=== PATIENT | female | born 1970 | race Caucasian/White ===

== ENCOUNTER 2016-09-01 09:33 | Emergency (ER) | payer SELFPAY ==
[~2016-09-01] VITALS: Ht 167.6 cm; Wt 54.5 kg
[~2016-09-01 09:33] MED LIST: AZIT500T4 PO; CITA40TA19; CMBV14.7IN INH; OXYC-109 PO; PRED20TA PO
[2016-09-01 10:14] LABS: BASOPHILS % (AUTO) 1 % (0-2); EOSINOPHILS # (AUTO) 0.2 10^3uL; EOSINOPHILS % (AUTO) 2 % (0-4); LYMPHOCYTES # (AUTO) 4.3 X10^3; MEAN CORPUSCULAR VOLUME 92 FL (80-100); MEAN PLATELET VOLUME 9.8 FL (6.0-9.5); MONOCYTES # (AUTO) 0.6 X10^3; MONOCYTES % (AUTO) 7 % (3-11); NEUTROPHILS # (AUTO) 4.4 X10^3; NEUTROPHILS % (AUTO) 46 % (51-67); PLATELET COUNT 314 10^3uL (150-450); WHITE BLOOD COUNT 9.52 10^3uL (4.0-11.0)
[2016-09-01 10:15] LABS: MEAN CORPUSCULAR HEMOGLOBIN 31.4 PG (26.0-34.0)
[2016-09-01 10:21] LABS: ALBUMIN 4.4 g/dL (3.4-5.0); ALKALINE PHOSPHATASE 86 U/L (38-126); ANION GAP 18.5 MEQ/L (3-15); BUN/CREATININE RATIO 14 (10-20); CALCULATED IONIZED CALCIUM 3.6 mg/dL (3.8-4.6); CREATINE KINASE 63 U/L (30-135); TOTAL PROTEIN 9.2 g/dL (6.4-8.5)
[2016-09-01 11:25] LABS: BILIRUBIN,URINE Negative (Negative); CLARITY,URINE Clear; COLOR,URINE Yellow; GLUCOSE, URINE (UA) Negative (Negative); LEUKOCYTE ESTERASE ,URINE Negative (Negative); UROBILINOGEN,URINE 0.2 mg/dL (0.2-1.0)
[2016-09-01 11:32] LABS: RBC,URINE 0-2 /HPF; URINE CENTRIFUGED VOLUME 12 mL
--- NOTE | 2016-09-01 11:33 | Diagnostic Imaging Report ---
EXAMINATION: PA and lateral chest are correlated with a CT study from May 26, 2012. INDICATION: Shortness of breath after sneezing. FINDINGS: The lungs demonstrate no focal pulmonary infiltrates or consolidation. There is no effusion. There is no evidence of pneumothorax. The lungs do appear to be hyperinflated evidenced by flattening of the diaphragms on the lateral view. Heart size and mediastinal contours are appropriate. No acute osseous abnormality demonstrated. IMPRESSION: 1. Pulmonary hyperinflation without evidence of focal infiltrate, effusion or pneumothorax. Dictated by: Dictated on workstation # [id number]
[2016-09-01 11:39] LABS: AMPHETAMINE SCREEN, URINE Negative (Negative); CANNABINOID SCREEN, URINE Positive (Negative); METHAMPHETAMINE SCREEN URINE S NEGATIVE (NEGATIVE); OPIATE SCREEN URINE Negative (Negative); PROPOXYPHENE STAT NEGATIVE (NEGATIVE)
[2016-09-01 12:39] VITALS: BP 95/62
== END 2016-09-01 11:41 | disposition home or self-care (01) ==
LOC: ED 09:35
DX: F45.8 Other somatoform disorders (principal); Z72.0 Tobacco use; R42 Dizziness and giddiness; J44.9 Chronic obstructive pulmonary disease, unspecified; R20.0 Anesthesia of skin
CPT/HCPCS: 36415; 71020; 80053; 80307; 80320; 81003; 81015; 82550; 82553; 84443; 84484; 84703; 85025; 86140; 87077; 87088; 87186; 93005; 93010; 99284; 99285

== ENCOUNTER 2016-10-21 08:36 | Emergency (ER) | payer SELFPAY ==
[~2016-10-21] VITALS: Ht 167.6 cm; Wt 52.5 kg
--- OUTSIDE RECORDS SUMMARY | 2016-10-21 08:42 | XMS REPORT | Continuity of Care Document ---
Author Author [facility] Hospital Address Unknown Phone Unavailable Care Team Providers Care Head Greenskeeper Name Role Phone Mack Botello MD PCP [phone] Insurance Providers Payer Name Policy Number Subscriber Name Relationship Self Pay Radha Page 18 Self / Same As Patient Advance Directives Directive Response Recorded Date/Time Advanced Directives No 09/01/16 9:35am Chief Complaint and Reason for Visit Chief Complaint Cardiac Complaint Reason for Visit [id number] Problems Active Problems Medical Problem Onset Date Status Hyperventilation syndrome Unknown Acute Medications Current Home Medications Medication Dose Units Route Directions Days/Qty Instructions Start Date Citalopram Hydrobromide 40 Mg 05/26/12 Prednisone 20 Mg 20 Mg ORAL Daily 9 05/26/12 Azithromycin 500 Mg 500 Mg ORAL Daily 3 05/26/12 Oxycodone/Acetaminophen 1 Each 1 Each ORAL Every 6 Hours 15 05/26/12 Albuterol/Ipratropium 14.7 Gm 14.7 Gm RESPIRATORY (INHALATION) Four Times Daily 1 05/26/12 Social History Query Response Start Date Stop Date Smoking Status Current every day smoker Hospital Discharge Instructions No hospital discharge instructions. Plan of Care Discharge Date 09/01/16 11:41am Disposition 01 HOME OR SELF-CARE Condition at Discharge Stable Instructions/Education Provided Hyperventilation Prescriptions See Medication Section Referrals Mack Botello MD - Additional Instructions/Education See your doctor in the next week for follow up care and to review your lab and tests from today. Return to the ER if you have any recurrent episodes. Some of your test results may not be complete prior to your leaving the Emergency Department. The Emergency Department is not authorized to give test results over the phone. Please contact the doctor's office listed in this packet of information for your final results. Follow up with your primary care physician or return to the Emergency Department for worsening or worrisome symptoms. * Emergency Department phone number: [phone], x [phone]* MEDICAL RECORD If you need copies of your X-rays, call [phone]. If you need copies of your medical record, including lab results, a signed authorization for release of records will be required. A telephone call for release of Health Information is not allowed. BILLING Billing can sometimes be confusing and frustrating. To help avoid confusion in the future, please take a moment to acquaint yourself with the billing parties for services. SERVICE BILLING [employer] Emergency Room Services [facility] Physician Services [facility] Patients will receive bills for services from the appropriate provider. If you have any questions about your [facility] bill, our staff will be happy to assist you. Please call [phone], and ask for the billing department. THANK YOU for choosing [facility] as your emergency care provider! Care Plan and Goals ~~Discharge Care Plan~~ Problem: Breathing difficulty Goal: Able to breathe without shortness of air and perform usual activities. Instructions: Take medication(s) as directed. Follow physician discharge instructions. Follow up with primary care physician as directed. Use inhalers as needed. Functional Status No functional status results. Allergies, Adverse Reactions, Alerts No known allergies. Immunizations No immunization records. Vital Signs Acute Vital Signs Vital Response Date/Time Temperature (Fahrenheit) 98.2 09/01/2016 9:35am Pulse 108 bpm 09/01/2016 9:35am Respirations 13 09/01/2016 9:35am Height 5 ft 6 in Weight 120 lb Body Mass Index 19.0 kg/m^2 Results Laboratory Results Test Name Result Units Flags Reference Collection Date/Time Result Date/ Time Comments White Blood Count 9.52 10^3uL 4.0-11.0 09/01/2016 9:45am 09/01/2016 10: 16am Red Blood Count 4.33 10^6uL 4.00-5.00 09/01/2016 9:45am 09/01/2016 10: 16am Hemoglobin 13.6 g/dL 12.0-15.5 09/01/2016 9:45am 09/01/2016 10:16am Hematocrit 40.00 % 35.00-45.00 09/01/2016 9:45am 09/01/2016 10:16am Mean Corpuscular Volume 92 FL 80-100 09/01/2016 9:45am 09/01/2016 10: 16am Mean Corpuscular Hemoglobin 31.4 PG 26.0-34.0 09/01/2016 9:45am 2016 10:16am Mean Corpuscular Hemoglobin Concent 34.0 g/dL 31.0-37.0 09/01/2016 9: 45am 09/01/2016 10:16am Red Cell Distribution Width 12.8 % 11.8-15.6 09/01/2016 9:45am 2016 10:16am Platelet Count 314 10^3uL 150-450 09/01/2016 9:45am 09/01/2016 10:16am Mean Platelet Volume 9.8 FL H 6.0-9.5 09/01/2016 9:45am 09/01/2016 10: 16am Neutrophils (%) (Auto) 46 % L 51-67 09/01/2016 9:45am 09/01/2016 10: 16am Lymphocytes (%) (Auto) 45 % 20-46 09/01/2016 9:45am 09/01/2016 10:16am Monocytes (%) (Auto) 7 % 3-11 09/01/2016 9:45am 09/01/2016 10:16am Eosinophils (%) (Auto) 2 % 0-4 09/01/2016 9:45am 09/01/2016 10:16am Basophils (%) (Auto) 1 % 0-2 09/01/2016 9:45am 09/01/2016 10:16am Neutrophils # (Auto) 4.4 X10^3 09/01/2016 9:45am 09/01/2016 10:16am Lymphocytes # (Auto) 4.3 X10^3 09/01/2016 9:45am 09/01/2016 10:16am Monocytes # (Auto) 0.6 X10^3 09/01/2016 9:45am 09/01/2016 10:16am Eosinophils # (Auto) 0.2 10^3uL 09/01/2016 9:45am 09/01/2016 10:16am Basophils # (Auto) 0.1 10^3uL 09/01/2016 9:45am 09/01/2016 10:16am Volume Urine Centrifuged 12 mL 09/01/2016 10:20am 09/01/2016 11: 39am Urine Collection Type CLEAN CATCH 09/01/2016 10:2009/01/2016 11: 39am Urine Color Yellow 09/01/2016 10:20am 09/01/2016 11:28am Urine Clarity Clear 09/01/2016 10:20am 09/01/2016 11:28am Urine pH 7.0 5.0 - 8.0 09/01/2016 10:20am 09/01/2016 11:28am Urine Specific [place] 1.020 1.005-1.030 09/01/2016 10:20am 2016 11:28am Urine Protein Trace H Negative 09/01/2016 10:20am 09/01/2016 11:28am Urine Glucose (UA) Negative Negative 09/01/2016 10:20am 09/01/2016 11 :28am Urine Blood Negative Negative 09/01/2016 10:20am 09/01/2016 11:28am Urine Ketones 1+ H Negative 09/01/2016 10:20am 09/01/2016 11:28am Urine Nitrite Positive H Negative 09/01/2016 10:20am 09/01/2016 11: 28am Urine Bilirubin Negative Negative 09/01/2016 10:20am 09/01/2016 11: 28am Urine Urobilinogen 0.2 mg/dL 0.2-1.0 09/01/2016 10:2009/01/2016 11: 28am Urine Leukocyte Esterase Negative Negative 09/01/2016 10:202016 11:28am Urine Microscopic RBC 0-2 /HPF 09/01/2016 10:2009/01/2016 11:39am Urine WBC 2-5 /HPF 09/01/2016 10:20am 09/01/2016 11:39am Urine Bacteria 3+ /HPF H 09/01/2016 10:2009/01/2016 11:39am Urine Squamous Epithelial Cells 50-100 /LPF 09/01/2016 10:202016 11:39am Urine Mucus 1+ 09/01/2016 10:2009/01/2016 11:39am Sodium Level 141 mmol/L # 135-150 09/01/2016 9:45am 09/01/2016 10:31am Potassium Level 3.1 mmol/L L 3.5-5.1 09/01/2016 9:45am 09/01/2016 10: 31am Chloride Level 106 mmol/L 98-108 09/01/2016 9:45am 09/01/2016 10:31am Carbon Dioxide Level 20 mmol/L L 22-29 09/01/2016 9:45am 09/01/2016 10: 31am Anion Gap 18.5 MEQ/L H 3-15 09/01/2016 9:45am 09/01/2016 10:31am Blood Urea Nitrogen 13 mg/dL # 7-18 09/01/2016 9:45am 09/01/2016 10:31am Creatinine 0.90 mg/dL 0.6-1.2 09/01/2016 9:45am 09/01/2016 10:31am BUN/Creatinine Ratio 14 10-20 09/01/2016 9:45am 09/01/2016 10:31am Estimat Glomerular Filtration Rate 81.9 09/01/2016 9:452016 10:31am Estimated GFR (Non- 67.7 09/01/2016 9:452016 10:31am Glucose Level 153 mg/dL # H 70-110 09/01/2016 9:45am 09/01/2016 10:31am Calculated Osmolality 275 mosm/L L 280-300 09/01/2016 9:4509/01/2016 10:31am Calcium Level 9.5 mg/dL 8.8-10.8 09/01/2016 9:4509/01/2016 10:31am Calcium/Ionized Calcium Ratio 3.6 mg/dL L 3.8-4.6 09/01/2016 9:4512/2016 10:31am Total Bilirubin 0.7 mg/dL 0.1-1.0 09/01/2016 9:09/01/2016 10:31am Alkaline Phosphatase 86 U/L 38-126 09/01/2016 9:4509/01/2016 10: 31am Aspartate Amino Transf (AST/SGOT) 20 U/L 15-37 09/01/2016 9:452016 10:31am Alanine Aminotransferase (ALT/SGPT) 27 U/L L 30-65 09/01/2016 9:4512/2016 10:31am Total Creatine Kinase 63 U/L # 30-135 09/01/2016 9:4509/01/2016 10: 31am Creatine Kinase MB 0.7 ng/mL 0.0-6.0 09/01/2016 9:4509/01/2016 10: 31am Troponin I < 0.012 ng/mL 0.010-0.080 09/01/2016 9:09/01/2016 10: 31am Total Protein 9.2 g/dL H 6.4-8.5 09/01/2016 9:09/01/2016 10:31am Albumin 4.4 g/dL 3.4-5.0 09/01/2016 9:4509/01/2016 10:31am Albumin/Globulin Ratio 0.916 L 1.1-1.8 09/01/2016 9:4509/01/2016 10 :31am Thyroid Stimulating Hormone (TSH) 5.64 uIU/mL H 0.46-4.68 09/01/2016 9: 09/01/2016 10:56am C-Reactive Protein < 0.50 mg/dL 0.0-0.9 09/01/2016 9:4509/01/2016 10 :31am Serum Alcohol < 10.0 mg/dL L 10-80 09/01/2016 9:45am 09/01/2016 10:31am Procedures No known history of procedures. Encounters Encounter Location Arrival/Admit Date Discharge/Depart Date Attending Provider Departed Emergency Room [facility] 09/01/16 9:35am 09/01/16 11:41am DOLORES CHAMORRO DO Recent Diagnosis
[2016-10-21] MEDS ORDERED: ALBUTEROL 0.083% NEB SOLUTION 2.5 MG/3 ML VIAL INH STA (09:30)
--- NOTE | 2016-10-21 10:12 | Diagnostic Imaging Report ---
INDICATION: Cough, right-sided chest pain. Compared 09/01/2016. FINDINGS: Symmetrical air trapping and COPD are chronic findings. Hilar and mediastinal contours unremarkable. There is no failure, effusion or pneumothorax and no acute or focal infiltrate. IMPRESSION: Clear hyperexpanded lungs stable from prior, otherwise negative. Dictated by: Dictated on workstation # [id number]
[2016-10-21] MEDS ORDERED: ALBU8.5H2 IH (10:35)
[2016-10-21] MEDS ORDERED: AZIT250T81 PO (10:35)
[2016-10-21 11:14] VITALS: BP 100/63
== END 2016-10-21 10:45 | disposition home or self-care (01) ==
LOC: EDUNIT# 08:36 → ED 08:38
DX: J45.909 Unspecified asthma, uncomplicated (principal)
CPT/HCPCS: 71020; 94640; 99282; J7613